=== PATIENT | male | born 1975 | race Caucasian/White ===

== ENCOUNTER 2016-12-10 16:10 | Inpatient (IN) | payer MEDICAID, OTHER ==
[~2016-12-10] VITALS: Ht 167.6 cm; Wt 71.0 kg
[2016-12-10 16:30] LABS: BASOPHILS # (AUTO) 0.04 K/uL (0.00-0.20); BASOPHILS % (AUTO) 0.4 % (0.0-2.0); EOSINOPHILS # (AUTO) 0.16 K/uL (0.00-0.70); HEMATOCRIT 43.9 % (41-53); HEMOGLOBIN 14.8 g/dL (13.5-17.5); LYMPHOCYTES # (AUTO) 2.9 K/uL (1.0-4.8); LYMPHOCYTES % (AUTO) 31.5 % (22.0-44.0); MEAN CORPUSCULAR HEMOGLOBIN 30.5 pg (26.0-34.0); MEAN CORPUSCULAR HGB CONC 33.8 G/dL (31.0-37.0); MEAN CORPUSCULAR VOLUME 90 fL (80-100); MONOCYTES # (AUTO) 0.6 K/uL (0.1-1.0); NEUTROPHILS # (AUTO) 5.5 K/uL (1.8-7.7); NEUTROPHILS % (AUTO) 60.3 % (40.0-70.0); PLATELET COUNT (AUTO) 363 K/uL (150-450); RED BLOOD CELL COUNT(AUTO) 4.87 MIL/uL (4.50-5.90); RED CELL DISTRIBUTION WIDTH 12.9 % (11.5-14.5); WHITE BLOOD COUNT (AUTO) 9.2 K/uL (4.5-11.0)
[2016-12-10 16:39] LABS: ANION GAP 7 mmol/L (8-16); CALCIUM, TOTAL 9.4 mg/dL (8.8-10.5); CARBON DIOXIDE 28 mmol/L (22-29); CHLORIDE 103 mmol/L (98-107); CREATININE 1.14 mg/dL (0.60-1.30); GLOMERULAR FILTR. RATE CALC > 60 mL/min (>60); POTASSIUM 4.2 mmol/L (3.5-5.1); SODIUM SERUM 138 mmol/L (136-145); UREA NITROGEN, BLOOD 12 mg/dL (7-18)
[2016-12-10 16:45] LABS: ALANINE AMINOTRANSFERASE 28 U/L (12-78); ALBUMIN 4.4 g/dL (3.4-5.0); ASPARTATE AMINOTRANSFERASE 17 U/L (15-37); BILIRUBIN,TOTAL 0.5 mg/dL (0.1-1.0); TOTAL PROTEIN, SERUM 8.1 g/dL (6.4-8.2)
[2016-12-10] MEDS ORDERED: LITH600C PO (17:13)
[2016-12-10] MEDS ORDERED: GABA-533 PO (17:13)
[2016-12-10] MEDS ORDERED: PRAZ2CAP2 PO (17:13)
[2016-12-10] MEDS ORDERED: CLON0.5T4 PO (17:13)
[2016-12-10] MEDS ORDERED: QUET50TA PO (17:13)
[2016-12-10] MEDS ORDERED: MEDICAL MARIJUANA IH (17:13)
[2016-12-10] MEDS ORDERED: LITH450CRT PO (17:13)
[2016-12-10] MEDS ORDERED: QUET200T PO (17:40)
[2016-12-10] MEDS ORDERED: LITH300T PO (17:40)
[2016-12-10] MEDS ORDERED: GABAPENTIN 100 MG CAPSULE PO ONE (18:45)
[2016-12-10] MEDS ORDERED: LORazepam 2 MG/ML VIAL IM ONE (18:45)
[2016-12-10] MEDS ORDERED: DiphenhydrAMINE HCL 50 MG/ML VIAL IM ONE (18:45)
[2016-12-10] MEDS ORDERED: HALOPERIDOL LACTATE 5 MG/ML VIAL IM ONE (18:45)
[2016-12-10 19:05] LABS: LITHIUM 0.28 mmol/L (0.60-1.20)
[2016-12-10 19:14] LABS: ABG A-A DIFF O2 32.7 mmHg (10-20.0); ABG BASE EXCESS 2.8 mmol/L (-2.0-3.0); ABG HCO3 26.7 mmol/L (22.0-26.0); ABG PCO2 41 mmHg (35-45); ABG PH 7.438 (7.35-7.450); ALLEN TEST, BLOOD GAS Positive; TEMPERATURE, FAHRENHEIT, BG 98.6 FAHREN (96.0-98.6)
[2016-12-10 19:46] LABS: CHOL/HDL RATIO 3.9 (4.2-7.3)
[2016-12-10] MEDS ORDERED: ACETAMINOPHEN 325 MG TABLET PO PRN (21:45)
[2016-12-10] MEDS ORDERED: IBUPROFEN 400 MG TABLET PO PRN (21:45)
[2016-12-10 22:29] VITALS: BP 109/69
[2016-12-11 07:26] LABS: HEMOGLOBIN A1C 5.4 % (4.5-6.2)
[2016-12-11 07:46] LABS: CHOL/HDL RATIO 4.3 (4.2-7.3); THYROID STIMULATING HORMONE 1.55 uIU/mL (0.36-3.74)
[2016-12-11 08:30] VITALS: BP 120/70
[2016-12-11] MEDS ORDERED: PRAZOSIN HCL 2 MG CAPSULE PO SCH (09:00)
[2016-12-11] MEDS: NICOTINE 21 MG/24 HOUR PATCH TD SCH (09:08)
[2016-12-11] MEDS: LITHIUM CARBONATE 300 MG TABLET PO SCH (11:25)
[2016-12-11] MEDS: LORazepam 2 MG TABLET PO PRN ×3 (11:46→23:55)
[2016-12-11] MEDS: HALOPERIDOL 5 MG TABLET PO PRN (14:26)
[2016-12-11 16:00] VITALS: BP 110/68
[2016-12-11] MEDS: ZOLPIDEM TARTRATE 10 MG TABLET PO PRN (20:44)
[2016-12-11] MEDS: LITHIUM CARBONATE 600 MG CAPSULE PO SCH (20:45)
[2016-12-11] MEDS: PRAZOSIN HCL 2 MG CAPSULE PO SCH (20:45)
[2016-12-12 00:01] VITALS: BP 108/68
[2016-12-12] MEDS: LORazepam 2 MG TABLET PO PRN ×3 (06:46→16:18)
[2016-12-12 08:30] VITALS: BP 108/57
[2016-12-12] MEDS: LITHIUM CARBONATE 300 MG TABLET PO SCH (09:21)
[2016-12-12] MEDS: NICOTINE 21 MG/24 HOUR PATCH TD SCH (09:25)
[2016-12-12] MEDS: HALOPERIDOL 5 MG TABLET PO PRN ×2 (11:04→15:04)
[2016-12-12 16:52] VITALS: BP 119/75
[2016-12-12] MEDS: LITHIUM CARBONATE 600 MG CAPSULE PO SCH (20:01)
[2016-12-12] MEDS: PRAZOSIN HCL 2 MG CAPSULE PO SCH (20:02)
[2016-12-12] MEDS ORDERED: ONDANSETRON HCL 4 MG TABLET PO PRN (20:30)
[2016-12-12] MEDS ORDERED: QUEtiapine FUMARATE 300 MG TABLET PO SCH (21:00)
[2016-12-13] MEDS: ZOLPIDEM TARTRATE 10 MG TABLET PO PRN (02:18)
[2016-12-13 02:20] VITALS: BP 146/70
[2016-12-13] MEDS: NICOTINE 21 MG/24 HOUR PATCH TD SCH (08:21)
[2016-12-13] MEDS: LITHIUM CARBONATE 300 MG TABLET PO SCH (08:22)
[2016-12-13] MEDS: LORazepam 2 MG TABLET PO PRN (08:27)
[2016-12-13 10:26] VITALS: BP 136/86
== END 2016-12-13 11:40 | disposition home or self-care (01) | DRG 753 ==
LOC: EMS 16:13 → 3EI 19:30
PROVIDERS: ADMIT Psychiatry & Neurology Child & Adolescent Psychiatry; ATTEND Psychiatry & Neurology Child & Adolescent Psychiatry
DX: F31.4 Bipolar disorder, current episode depressed, severe, without psychotic features (principal); K51.90 Ulcerative colitis, unspecified, without complications; M79.7 Fibromyalgia; F17.210 Nicotine dependence, cigarettes, uncomplicated; Z91.14 Patient's other noncompliance with medication regimen
CPT/HCPCS: 82805; 83036; 84443; 96372; 99285; 99406; G0480; J1200; J1630; J2060